=== PATIENT | male | born 1995 | race Caucasian/White ===

== ENCOUNTER 2016-05-11 20:58 | Emergency (ER) | payer MEDICAID ==
[2016-05-11] MEDS ORDERED: IBUPROFEN 200 MG TAB PO ONE (21:22)
[2016-05-11 21:51] VITALS: BP 135/70; PULSE 78; RESP 16; TEMP 100.5; O2SAT 94
--- NOTE | 2016-05-11 21:52 | UCPHY ---
H & P Time Seen by Provider: 05/11/16 21:09 Patient Type: Established HPI/ROS: CHIEF COMPLAINT: Body aches, fever, sore throat HPI: The patient is a 21-year-old male with no significant past medical history. He reports fever as high as 102 F, cough, sore throat and body aches since yesterday. He did not receive a flu shot. He denies vomiting or abdominal pain. No neck pain. He has been able to tolerate water by mouth. REVIEW OF SYSTEMS: Aside from elements discussed in the HPI, a comprehensive 10-point review of systems was reviewed and is negative. PMH: None significant. SOCIAL HISTORY: Single. Employed. FAMILY HISTORY: Reviewed, noncontributory PHYSICAL EXAM: General:Patient is alert, in no acute distress. ENT:Eyes are normal to inspection. ENT inspection normal. Neck: Normal inspection. Full range of motion. Respiratory:No respiratory distress. Breath sounds normal bilaterally. Cardiovascular: Regular rate and rhythm. Strong peripheral pulses. Normal cap refill. Skin: Normal color. No rash. Warm and dry. Extremities: Normal appearance. Full range of motion. Neuro: Oriented x3. Normal motor function. Normal sensory function. Smoking Status: Never smoked Constitutional: Initial Vital Signs Temperature (C) 38.1 C 05/11/16 21:19 Heart Rate 78 05/11/16 21:19 Respiratory Rate 16 05/11/16 21:19 Blood Pressure 135/70 H 05/11/16 21:19 O2 Sat (%) 94 05/11/16 21:19 O2 Delivery Mode Room Air Allergies/Adverse Reactions: No Known Allergies Allergy (Verified 05/11/16 21:21) Home Medications: Medication Instructions Recorded NK [No Known Home Meds] 05/11/16 Medical Decision Making ED Course/Re-evaluation: This patient presents with signs and symptoms consistent with influenza, and indeed his influenza swab is positive for influenza A. His strep swab is negative. I had extensive discussion with the patient and his family member regarding this diagnosis as well as need for possible treatment and prophylaxis of his family. I see no signs of pneumonia or meningitis. This is a healthy young male who is well-hydrated and appropriate for outpatient conservative therapy. - Data Points Laboratory Results: 05/11/16 05/11/16 Unknown 21:10 Influenza Typ A,B (DFA) POSITIVE FOR FLU A H (NEGATIVE) Group A Strep Screen NEGATIVE (NEGATIVE) Group A Strep DNA Pending Medications Given: Discontinued Medications Ibuprofen (Motrin) 400 mg PO EDNOW ONE Stop: 05/11/16 21:23 Last Admin: 05/11/16 21:25 Dose: 400 mg Departure - Departure Disposition: Home, Routine, Self-Care Clinical Impression: Influenza A Condition: Good Instructions: Influenza (ED) Additional Instructions: Use ibuprofen and Tylenol as needed for fever and body aches. Follow up with your primary care physician within 72 hours for reevaluation. Drink plenty of fluids. Return to the emergency department immediately for high fever, severe headache or neck pain, difficulty breathing, abdominal pain, rash or other worsening of condition. Referrals: [place],. [Primary Care Provider] - As per Instructions Stand Alone Forms: Work Excuse - PQRS PQRS Measurement: 134: Depression screening and followup, PRIME MD-PHQ2 (12 years and older) Over the last 2 weeks, how often have you been bothered by any of the following problems? 1. Feeling down, depressed, or hopeless? 2. Little interest or pleasure in doing things? Patient answered no to both 1 and 2 130: Documentation of medications. Reviewed all patient medications, doses, route and frequency. 226: Do you smoke? No. 51: 18 years old and older with diagnosis of COPD, spirometry performance. Spirometry not performed; equipment not available. Patient has no history of COPD 52: 18 years old and older with COPD and symptoms of COPD or FEV1<60% predicted prescribed a B Agonist. Spirometry not performed; equipment not available.
== END 2016-05-11 21:54 | disposition home or self-care (01) ==
LOC: CED 20:58
DX: J10.1 Influenza due to other identified influenza virus with other respiratory manifestations (principal)
CPT/HCPCS: 87400-PO; 87880-PO; 99214-PO; G0463-PO